=== PATIENT | female | born 1995 | race Caucasian/White ===

== ENCOUNTER 2016-10-17 22:20 | Emergency (ER) | payer OTHER ==
[2016-10-17 22:48] VITALS: BP 122/92
== END 2016-10-17 23:13 | disposition home or self-care (01) ==
LOC: ED 22:20
DX: Z76.0 Encounter for issue of repeat prescription (principal); E11.9 Type 2 diabetes mellitus without complications; Z79.4 Long term (current) use of insulin

== ENCOUNTER 2017-08-06 13:42 | Emergency (ER) | payer OTHER ==
[~2017-08-06] VITALS: Ht 165.1 cm; Wt 54.0 kg
[2017-08-06 14:05] VITALS: BP 120/69; Ht 165.1 cm; Wt 54.0 kg
== END 2017-08-06 14:54 | disposition home or self-care (01) ==
LOC: ED 13:42
DX: S09.8XXA Other specified injuries of head, initial encounter (principal); Z76.0 Encounter for issue of repeat prescription; E10.9 Type 1 diabetes mellitus without complications; Z79.4 Long term (current) use of insulin; G43.909 Migraine, unspecified, not intractable, without status migrainosus; X58.XXXA Exposure to other specified factors, initial encounter; Y93.89 Activity, other specified; Y99.8 Other external cause status; Y92.89 Other specified places as the place of occurrence of the external cause
CPT/HCPCS: 82962

== ENCOUNTER 2017-08-07 15:31 | Emergency (ER) | payer OTHER ==
[~2017-08-07] VITALS: Ht 165.1 cm; Wt 54.0 kg
[2017-08-07 16:03] VITALS: Ht 165.1 cm; Wt 54.0 kg
[2017-08-07 20:15] VITALS: BP 117/82
== END 2017-08-07 20:15 | disposition home or self-care (01) ==
LOC: ED 15:31
DX: R11.2 Nausea with vomiting, unspecified (principal); E11.65 Type 2 diabetes mellitus with hyperglycemia; G43.909 Migraine, unspecified, not intractable, without status migrainosus
CPT/HCPCS: 36415; 82962